=== PATIENT | male | born 1945 | race Caucasian/White ===

== ENCOUNTER 2017-10-31 10:12 | Day surgery (SDC) | payer OTHER, MEDICARE ==
[~2017-10-31] VITALS: Ht 175.3 cm; Wt 112.9 kg
[~2017-10-31 10:12] MED LIST: ASPI81TA85 PO; COLA100C5 PO; FISH1000 PO; FLOM5CAP PO; GABA-282 PO; HYDR-3713 PO; LEVO25TA5 PO; LOSA25TA8 PO; NITR0.4S14 SL; PRIL20CA9 PO; VENL75TA2 PO
[2017-10-31] MEDS ORDERED: NS 1,000 ML IV ONE (10:30)
[2017-10-31] MEDS ORDERED: PROPOFOL 200 MG/20 ML VIAL As Ordered ONE ×2 (12:09→12:26)
[2017-10-31] MEDS ORDERED: LIDOCAINE 2% INJ 100 MG/5 ML SDV (FOR ANES.) As Ordered ONE (12:09)
[2017-10-31] MEDS ORDERED: EPINEPHrine 1MG/10ML SYRINGE 1.5IN As Ordered ONE (12:23)
--- NOTE | 2017-10-31 12:34 | ROOR ---
Patient Name: Viktor Verde Procedure Date: 10/31/2017 12:03 PM Date of : 1945 Age: 72 Room: [facility], [facility]IN [facility] Gender: Male Note Status: Finalized Procedure: Upper Endoscopy + Biopsies + Hemoclips + Injection Therapy Indications: Iron deficiency anemia, Heartburn, Rangel's esophagus, Follow-up of Rangel's esophagus Providers: Jamie Hidalgo MD Referring MD: GIORGIO GARLAND DO, John H. Lalor Requesting Provider: Medicines: Monitored Anesthesia Care Complications: No immediate complications. Procedure: Pre-Anesthesia Assessment: - The heart rate, respiratory rate, oxygen saturations, blood pressure, adequacy of pulmonary ventilation, and response to care were monitored throughout the procedure. The Endoscope was introduced through the mouth, and advanced to the second part of duodenum. The upper GI endoscopy was accomplished without difficulty. The patient tolerated the procedure well. Findings: The Z-line was irregular and was found 35 cm from the incisors. Multiple biopsies were obtained with cold forceps for evaluation to rule out Rangel's Esophagus randomly at the gastroesophageal junction. A small hiatal hernia was present. One oozing superficial gastric ulcer was found at the pylorus. To stop active bleeding, two hemostatic clips were successfully placed (MR conditional). There was no bleeding at the end of the procedure. Area was successfully injected with 1 mL of a 1:10,000 solution of epinephrine for hemostasis. The exam of the duodenum was otherwise normal. The exam was otherwise without abnormality. Impression: - Z-line irregular, 35 cm from the incisors. - Small hiatal hernia. - Oozing gastric ulcer. Clips (MR conditional) were placed. Injected. - The examination was otherwise normal. - Multiple biopsies were obtained at the gastroesophageal junction. - The examination was otherwise normal. Recommendation: - Patient has a contact number available for emergencies. The signs and symptoms of potential delayed complications were discussed with the patient. Return to normal activities tomorrow. Written discharge instructions were provided to the patient. - High fiber diet. - Discharge patient to home. - Continue present medications. - Await pathology results. - Telephone GI clinic for pathology results in 1 week. - Repeat upper endoscopy for surveillance based on pathology results. - Return to referring physician. - The findings and recommendations were discussed with the patient's family. Jamie Hidalgo MD Jamie Hidalgo MD 10/31/2017 12:34:15 PM This report has been signed electronically. Number of Addenda: 0 Note Initiated On: 10/31/2017 12:03 PM Estimated Blood Loss: Estimated blood loss: none.
--- NOTE | 2017-10-31 12:50 | ROOR ---
Patient Name: Viktor Verde Procedure Date: 10/31/2017 12:04 PM Date of : 1945 Age: 72 Room: [facility] Gender: Male Note Status: Finalized Procedure: Total Colonoscopy to Cecum + Cold Snare Polypectomy Indications: High risk colon cancer surveillance: Personal history of colonic polyps, Last colonoscopy: 2012 Providers: Jamie Hidalgo MD Referring MD: GIORGIO GARLAND DO, John H. Lalor Requesting Provider: Medicines: Monitored Anesthesia Care Complications: No immediate complications. Procedure: Pre-Anesthesia Assessment: - The heart rate, respiratory rate, oxygen saturations, blood pressure, adequacy of pulmonary ventilation, and response to care were monitored throughout the procedure. The Colonoscope was introduced through the anus and advanced to the cecum, identified by appendiceal orifice and ileocecal valve. The colonoscopy was performed without difficulty. The patient tolerated the procedure well. The quality of the bowel preparation was excellent. Findings: The perianal and digital rectal examinations were normal. Non-bleeding internal hemorrhoids were found during retroflexion. The hemorrhoids were small and Grade I (internal hemorrhoids that do not prolapse). Multiple small and large-mouthed diverticula were found in the recto-sigmoid colon, sigmoid colon and descending colon. A small polyp was found in the ascending colon. The polyp was sessile. The polyp was removed with a cold snare. Resection and retrieval were complete. The exam was otherwise without abnormality on direct and retroflexion views. Impression: - Non-bleeding internal hemorrhoids. - Diverticulosis in the recto-sigmoid colon, in the sigmoid colon and in the descending colon. - One small polyp in the ascending colon, removed with a cold snare. Resected and retrieved. - The examination was otherwise normal on direct and retroflexion views. - The exam was otherwise normal to the cecum. Recommendation: - Patient has a contact number available for emergencies. The signs and symptoms of potential delayed complications were discussed with the patient. Return to normal activities tomorrow. Written discharge instructions were provided to the patient. - High fiber diet. - Discharge patient to home. - Continue present medications. - Await pathology results. - Telephone GI clinic for pathology results in 1 week. - Repeat colonoscopy for symptoms only. - Check Portal Online for Path Results.([email or web address]) - The findings and recommendations were discussed with the patient's family. Jamie Hidalgo MD Jamie Hidalgo MD 10/31/2017 12:50:06 PM This report has been signed electronically. Number of Addenda: 0 Note Initiated On: 10/31/2017 12:04 PM Estimated Blood Loss: Estimated blood loss: none.
[2017-10-31 13:30] VITALS: BP 178/84
== END 2017-10-31 13:25 | disposition home or self-care (01) ==
LOC: M OPP 10:12
PROVIDERS: ATTEND Internal Medicine Gastroenterology
DX: R63.4 Abnormal weight loss (principal); Z86.010 Personal history of colon polyps; D12.2 Benign neoplasm of ascending colon; K64.0 First degree hemorrhoids; K57.30 Diverticulosis of large intestine without perforation or abscess without bleeding; D50.9 Iron deficiency anemia, unspecified; R12 Heartburn; K21.0 Gastro-esophageal reflux disease with esophagitis; K22.70 Barrett's esophagus without dysplasia; K25.4 Chronic or unspecified gastric ulcer with hemorrhage; K22.8 Other specified diseases of esophagus; K44.9 Diaphragmatic hernia without obstruction or gangrene; I25.2 Old myocardial infarction; I10 Essential (primary) hypertension; C83.10 Mantle cell lymphoma, unspecified site; E78.5 Hyperlipidemia, unspecified; I25.10 Atherosclerotic heart disease of native coronary artery without angina pectoris; E03.9 Hypothyroidism, unspecified; K59.00 Constipation, unspecified; M19.90 Unspecified osteoarthritis, unspecified site; M54.9 Dorsalgia, unspecified; F41.9 Anxiety disorder, unspecified; G47.30 Sleep apnea, unspecified; N40.1 Benign prostatic hyperplasia with lower urinary tract symptoms; Z87.891 Personal history of nicotine dependence; Z88.0 Allergy status to penicillin; Z79.82 Long term (current) use of aspirin; Z79.899 Other long term (current) drug therapy

== ENCOUNTER → 2020-05-19 | Outpatient (CLI) | payer OTHER, MEDICARE ==
[~2020-05-19] MED LIST changes: +FLOM0.4C39 PO; -FLOM5CAP PO; -GABA-282 PO; +GABA-843 PO; +LOSA25TA14 PO; -LOSA25TA8 PO
--- NOTE | 2020-05-20 09:40 | ECHO ---
DATE OF STUDY: 05/19/2020 REFERRING PHYSICIAN: Dr. Laron Olmstead INDICATION: Obstructive sleep apnea. HEIGHT: 69 inches WEIGHT: 262 pounds 2-D MEASUREMENTS: Aortic root: 3.9 cm Left atrium: 3.8 cm Ventricular septum: 1.47 cm Posterior wall: 1.50 cm Left ventricle diastole: 4.7 cm Aortic annulus: 2.8 cm Proximal ascending aorta: 2.6 cm Inferior vena cava: 1.3 cm (with normal respiratory variation) DOPPLER MEASUREMENTS: Trace aortic regurgitation. No aortic stenosis. Aortic valve velocity: 146 cm/sec LVOT velocity: 85.5 cm/sec LVOT VTI: 20.9 cm No mitral regurgitation. Mitral E velocity: 78.0 cm/sec Mitral A velocity: 92.5 cm/sec Mitral deceleration time: 225 ms Very mild tricuspid regurgitation. Estimated right ventricular systolic pressure 30-35 mmHg assuming a right atrial pressure of 5-10 mmHg. No pulmonic regurgitation. Pulmonary artery acceleration time: 169 ms MITRAL ANNULAR TISSUE DOPPLER: E prime septal: 6.64 cm/sec E prime lateral: 8.05 cm/sec DESCRIPTION: The rhythm was mostly sinus bradycardia. Image quality was fair. This was a 2-D, M-mode, color flow Doppler and pulsed wave Doppler examination and included mitral annular tissue Doppler. CONCLUSIONS: 1. Mild concentric left ventricular hypertrophy. Normal regional LV wall motion and wall thickening. Normal LV systolic function. Left ventricular ejection fraction (LVEF) 60% by visual estimate. Normal peak volume internal strain pattern. Grade I LV diastolic dysfunction. 2. Mild aortic sclerosis of a 3-cusp aortic valve. Trace aortic regurgitation. No aortic stenosis. 3. Mild dilatation of the aortic root at the level of sinuses of Valsalva (3.9 cm). Proximal ascending aorta at the upper limits of normal in size. 4. Suggestive of borderline to very mild elevation of estimated right ventricular systolic pressure (30-35 mmHg). 5. Otherwise, normal appearing echocardiogram-Doppler findings.
== END ==
LOC: M CARPUL 09:13
PROVIDERS: ATTEND Family Medicine
DX: G47.33 Obstructive sleep apnea (adult) (pediatric) (principal)

== ENCOUNTER 2020-06-25 13:20 | Day surgery (SDC) | payer OTHER ==
[~2020-06-25 13:20] MED LIST changes: -ASPI81TA85 PO; +ASPI81TA86 PO
[2020-06-25] MEDS ORDERED: fentaNYL 100 MCG/2 ML INJECTION (J3010) As Ordered ONE (13:25)
[2020-06-25] MEDS ORDERED: propofoL 200 MG/20 ML VIAL As Ordered ONE (13:25)
[2020-06-25] MEDS ORDERED: LIDOCAINE 2% 100MG/5ML SDV (FOR ANES.) As Ordered ONE (13:25)
--- NOTE | 2020-08-04 11:27 | ROOR ---
Patient Name: Viktor Verde Procedure Date: 06/25/2020 1:39 PM Date of : 1945 Age: 75 Room: [facility] Gender: Male Note Status: Finalized Procedure: Upper GI endoscopy Indications: Heartburn Providers: Kraig GONSALEZ MD Referring MD: [facility], Admin. Requesting Provider: Medicines: Monitored Anesthesia Care Complications: No immediate complications. Procedure: Pre-Anesthesia Assessment: - The heart rate, respiratory rate, oxygen saturations, blood pressure, adequacy of pulmonary ventilation, and response to care were monitored throughout the procedure. The Endoscope was introduced through the mouth, and advanced to the second part of duodenum. The upper GI endoscopy was accomplished without difficulty. The patient tolerated the procedure well. Findings: The Z-line was variable and was found 39 cm from the incisors. This was biopsied with a cold forceps for histology. Very small (insignificant) Hiatal Hernia. Diffuse minimal inflammation characterized by erythema was found in the gastric antrum. Biopsies were taken with a cold forceps for histology. The exam of the stomach was otherwise normal. The examined duodenum was normal. Impression: - Normal esophagus with Z-line variable, 39 cm from the incisors. Biopsied. - Very small (insignificant) Hiatal Hernia. - Minimal gastritis. Biopsied. - Stomach is otherwise normal - Normal examined duodenum. Recommendation: - Continue present medications. - Return to referring physician as previously scheduled. Kraig Gonsalez MD Kraig GONSALEZ MD 06/25/2020 1:58:11 PM Number of Addenda: 0 Note Initiated On: 06/25/2020 1:39 PM Estimated Blood Loss: Estimated blood loss: none.
== END 2020-06-25 14:23 | disposition home or self-care (01) ==
LOC: M OPP 13:20
PROVIDERS: ATTEND Internal Medicine Gastroenterology
DX: K22.8 Other specified diseases of esophagus (principal); K29.70 Gastritis, unspecified, without bleeding; R12 Heartburn; I25.2 Old myocardial infarction; E11.9 Type 2 diabetes mellitus without complications; Z79.82 Long term (current) use of aspirin; Z79.84 Long term (current) use of oral hypoglycemic drugs; Z79.899 Other long term (current) drug therapy; Z88.0 Allergy status to penicillin; Z88.1 Allergy status to other antibiotic agents; Z88.8 Allergy status to other drugs, medicaments and biological substances; Z87.891 Personal history of nicotine dependence
CPT/HCPCS: 43239; 88305; J3010

== ENCOUNTER → 2021-09-01 | Outpatient (CLI) | payer OTHER ==
[~2021-09-01] MED LIST changes: +GABA-282 PO; -GABA-843 PO
--- NOTE | 2021-09-01 11:01 | REP ---
INDICATION: CALF TENDERNESS COMPARISON: None. TECHNIQUE: Medrano scale and color Doppler evaluation using linear high frequency transducer. FINDINGS: Ultrasound examination of the right lower extremity deep venous structures from the common femoral vein through the calf/ankle to include the peroneal, and tibial veins demonstrates normal compressibility flow and wave patterns in response to respiration and augmentation. There is no evidence for deep venous thrombosis. Contralateral CFV is patent and normal. IMPRESSION: No evidence for deep venous thrombosis. <Electronically signed by Evan Diaz > 09/01/21 [id number]
== END ==
LOC: M RAD 10:24
PROVIDERS: ATTEND Family Medicine
DX: M79.661 Pain in right lower leg (principal)

== ENCOUNTER 2021-10-06 16:50 | Emergency (ER) | payer OTHER ==
[~2021-10-06] VITALS: Ht 175.3 cm; Wt 122.3 kg
[2021-10-06 17:44] LABS: BASO % 0.8 % (0.0-1.0); EOS # 0.7 10^3/uL (0.0-0.5); EOS % 13.2 % (0.0-3.0); HEMATOCRIT 37.9 % (42.0-52.0); HEMOGLOBIN 12.2 g/dl (13.5-17.5); LYMPH # 0.5 10^3/uL (1.5-5.0); LYMPH % 10.1 % (24.0-44.0); MEAN CORPUSCULAR HEMOGLOBIN 29.8 pg (27.0-33.0); MEAN CORPUSCULAR HGB CONC 32.2 g/dl (32.0-36.5); MEAN CORPUSCULAR VOLUME 92.7 fl (80.0-96.0); MONO # 0.6 10^3/uL (0.0-0.8); MONO % 12.8 % (2.0-8.0); NEUTROPHILS # 3.1 10^3/uL (1.5-8.5); NEUTROPHILS % 62.5 % (36.0-66.0); PLATELET COUNT, AUTOMATED 174 10^3/uL (150-450); RED BLOOD COUNT 4.09 10^6/uL (4.30-6.10); WHITE BLOOD COUNT 4.9 10^3/uL (4.0-10.0)
[2021-10-06 18:04] LABS: CREATININE FOR GFR 1.66 MG/DL (0.70-1.30); POTASSIUM SERUM 4.3 MEQ/L (3.5-5.1)
--- NOTE | 2021-10-06 18:11 | REP ---
INDICATION: CHEST PAIN. COMPARISON: 10/16/2005 TECHNIQUE: An AP portable sitting film was obtained. FINDINGS: The right lung is thought to be clear. Linear areas of increased density at the left costophrenic angle are noted not previously present. Consider atelectasis and or pneumonia. The heart is not enlarged and only mild ectasia of the thoracic aorta is noted. IMPRESSION: Changes at the left lung base as above. Consider atelectasis and or pneumonia <Electronically signed by Orville Valencia > 10/06/21 [id number]
[2021-10-06 19:24] VITALS: BP 132/75
--- NOTE | 2021-10-07 07:52 | ECGEPIP ---
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
== END 2021-10-06 19:25 | disposition home or self-care (01) ==
LOC: M ED 16:50
DX: R10.13 Epigastric pain (principal); M54.18 Radiculopathy, sacral and sacrococcygeal region; I25.2 Old myocardial infarction; I11.9 Hypertensive heart disease without heart failure; M54.50 Low back pain, unspecified; Z88.0 Allergy status to penicillin; Z79.899 Other long term (current) drug therapy

== ENCOUNTER → 2022-12-07 | Outpatient (CLI) | payer OTHER ==
[~2022-12-07] MED LIST changes: +LOSA25TA13 PO; -LOSA25TA14 PO
[2022-12-07 14:26] LABS: CREATININE FOR GFR 1.55 MG/DL (0.70-1.30); GLOMERULAR FILTRATION RATE 46.4 (>42)
== END ==
LOC: M PLALAB 09:46
PROVIDERS: ATTEND Physical Medicine & Rehabilitation
DX: M47.896 Other spondylosis, lumbar region (principal); M51.36 Other intervertebral disc degeneration, lumbar region; M51.26 Other intervertebral disc displacement, lumbar region

== ENCOUNTER → 2022-12-13 | Outpatient (CLI) | payer OTHER ==
[~2022-12-13] MED LIST changes: +PROHANCE 279.3MG/ML 5ML VIAL ONE
== END ==
LOC: M PLAIMG 10:19
PROVIDERS: ATTEND Physical Medicine & Rehabilitation
DX: M51.36 Other intervertebral disc degeneration, lumbar region (principal); M51.26 Other intervertebral disc displacement, lumbar region
CPT/HCPCS: 72158; A9576

== ENCOUNTER → 2023-03-12 | Outpatient (CLI) | payer MEDICARE, OTHER ==
[~2023-03-12] MED LIST changes: -PROHANCE 279.3MG/ML 5ML VIAL ONE
== END ==
LOC: M WHC 11:23
PROVIDERS: ATTEND Physician Assistant Medical
DX: N18.9 Chronic kidney disease, unspecified (principal)

== ENCOUNTER → 2023-05-03 | Outpatient (REF) | payer OTHER ==
[2023-05-03 14:22] LABS: APPEARANCE, URINE HAZY (CLEAR); BACTERIA, URINE AUTO NEGATIVE (NEGATIVE); BILIRUBIN, URINE AUTO NEGATIVE (NEGATIVE); BLOOD, URINE BLOOD NEGATIVE (NEGATIVE); COLOR, URINE YELLOW (YELLOW); GLUCOSE, URINE (UA) AUTO NEGATIVE (NEGATIVE); KETONE, URINE AUTO NEGATIVE (NEGATIVE); LEUKOCYTE ESTERASE, URINE AUTO NEGATIVE (NEGATIVE); NITRITE, URINE AUTO NEGATIVE (NEGATIVE); PROTEIN, URINE AUTO NEGATIVE (NEGATIVE); RBC, URINE AUTO 1 /HPF (0-3); SPECIFIC GRAVITY URINE AUTO 1.014 (1.002-1.035); SQUAMOUS EPITHELIAL CELL UR AU 0 /HPF (0-6); UROBILINOGEN, URINE AUTO 0.2 mg/dL (0.0-2.0); WBC, URINE AUTO 0 /HPF (0-3)
== END ==
LOC: M SMT 13:32
PROVIDERS: ATTEND Urology
DX: Z87.438 Personal history of other diseases of male genital organs (principal)
CPT/HCPCS: 81001; 88108; G0463

== ENCOUNTER → 2023-05-16 | Outpatient (CLI) | payer OTHER | LOC: M PLALAB 10:57 | PROVIDERS: ATTEND Urology | DX: Z87.438 Personal history of other diseases of male genital organs (principal) | CPT/HCPCS: 36415; G0103 ==

== ENCOUNTER → 2023-05-25 | Outpatient (REF) | payer OTHER ==
[2023-05-25 17:41] LABS: APPEARANCE, URINE CLEAR (CLEAR); BACTERIA, URINE AUTO NEGATIVE (NEGATIVE); BILIRUBIN, URINE AUTO NEGATIVE (NEGATIVE); BLOOD, URINE BLOOD NEGATIVE (NEGATIVE); COLOR, URINE YELLOW (YELLOW); GLUCOSE, URINE (UA) AUTO NEGATIVE (NEGATIVE); KETONE, URINE AUTO NEGATIVE (NEGATIVE); LEUKOCYTE ESTERASE, URINE AUTO NEGATIVE (NEGATIVE); NITRITE, URINE AUTO NEGATIVE (NEGATIVE); PROTEIN, URINE AUTO NEGATIVE (NEGATIVE); RBC, URINE AUTO 1 /HPF (0-3); SPECIFIC GRAVITY URINE AUTO 1.012 (1.002-1.035); SQUAMOUS EPITHELIAL CELL UR AU 0 /HPF (0-6); UROBILINOGEN, URINE AUTO 0.2 mg/dL (0.0-2.0); WBC, URINE AUTO 0 /HPF (0-3)
== END ==
LOC: M SMT 17:11
PROVIDERS: ATTEND Urology
DX: N32.89 Other specified disorders of bladder (principal)

== ENCOUNTER 2023-07-04 11:46 | Emergency (ER) | payer OTHER, MEDICARE ==
[~2023-07-04] VITALS: Ht 175.3 cm; Wt 113.6 kg
[2023-07-04 11:46] VITALS: TEMP 98.2
[2023-07-04 15:56] VITALS: BP 135/70; O2SAT 98
== END 2023-07-04 15:57 | disposition home or self-care (01) ==
LOC: M ED 11:46
DX: S09.90XA Unspecified injury of head, initial encounter (principal); W06.XXXA Fall from bed, initial encounter; I10 Essential (primary) hypertension; G47.33 Obstructive sleep apnea (adult) (pediatric); F41.9 Anxiety disorder, unspecified; Z86.79 Personal history of other diseases of the circulatory system; Z79.01 Long term (current) use of anticoagulants; Z88.0 Allergy status to penicillin; Z79.82 Long term (current) use of aspirin; Z79.811 Long term (current) use of aromatase inhibitors; Z79.899 Other long term (current) drug therapy

== ENCOUNTER → 2023-10-25 | Outpatient (CLI) | payer OTHER, MEDICARE ==
[~2023-10-25] MED LIST changes: +PROHANCE 279.3MG/ML 15ML VIAL ONE; +PROHANCE 279.3MG/ML 5ML VIAL ONE
== END ==
LOC: M PLAIMG 08:55
PROVIDERS: ATTEND Physical Medicine & Rehabilitation
DX: M47.892 Other spondylosis, cervical region (principal); M25.78 Osteophyte, vertebrae
CPT/HCPCS: 72156; A9576

== ENCOUNTER → 2023-10-26 | Outpatient (REF) | payer OTHER ==
[~2023-10-26] MED LIST changes: -PROHANCE 279.3MG/ML 15ML VIAL ONE; -PROHANCE 279.3MG/ML 5ML VIAL ONE
[2023-10-26 19:14] LABS: PERCENT SATURATION 19.3 % (19.7-50.0)
== END ==
LOC: M LAB REF 17:09
PROVIDERS: ATTEND Internal Medicine Nephrology
DX: D50.9 Iron deficiency anemia, unspecified (principal)

== ENCOUNTER → 2023-11-14 | Outpatient (CLI) | payer MEDICARE, OTHER | LOC: M RAD 08:24 | PROVIDERS: ATTEND Internal Medicine Nephrology | DX: N18.31 Chronic kidney disease, stage 3a (principal); I70.1 Atherosclerosis of renal artery ==